=== PATIENT | male | born 1980 | race Hispanic/Latino ===

== ENCOUNTER 2022-05-02 10:20 | Outpatient (CLI) | payer OTHER | END 2022-05-02 10:21 | disposition home or self-care (01) | LOC: CSHRAD 10:20 | PROVIDERS: ATTEND Nurse Practitioner Adult Health | DX: S69.91XA Unspecified injury of right wrist, hand and finger(s), initial encounter (principal); S62.624A Displaced fracture of middle phalanx of right ring finger, initial encounter for closed fracture ==